=== PATIENT | male | born 1995 ===

== ENCOUNTER 2017-10-11 12:40 | Emergency (ER) | payer OTHER ==
[2017-10-11 12:55] VITALS: BMI 21.1
[2017-10-11 12:57] VITALS: BP 107/70; PULSE 67; RESP 18; TEMP 97.7; O2SAT 100
--- NOTE | 2017-10-11 13:15 | C.PDOC ---
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 Patient reports of significant bleeding after he had a "hard sneeze". Admits to cold symptom ovewr the past week, assocaited with nasal congetsion and runny nose. Currently, no active epistaxis , fever, chills or headache. 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 Constitutional: Negative for: Fever, Chills ENT: Positive for: Other ((+) Nose bleeding. Resolved now.) Neurological: Negative for: Headache Physical Exam - Physical Exam Appears: Non-toxic, No Acute Distress Skin: Warm, Dry, No Rash Head: Atraumatic, Normacephalic Ear(s): Bilateral: Normal Nose: No Epistaxis, Other ((+) Left nostril with blood and scabed. ) Oral Mucosa: Moist Throat: Normal, No Erythema, No Exudate Neck: Normal, Normal ROM, Supple Respiratory: Normal Breath Sounds, No Rales, No Rhonchi, No Stridor, No Wheezing Extremity: Normal ROM, No Swelling Neurological/Psych: Oriented x3, Normal Speech, Normal Motor ED Course And Treatment O2 Sat by Pulse Oximetry: 100 (RA) Pulse Ox Interpretation: Normal Disposition Counseled Patient/Family Regarding: Diagnosis, Need For Followup - Disposition Referrals: Carlos Greenwood MD [Staff Provider] - Disposition: HOME/ ROUTINE Disposition Time: 13:12 Condition: STABLE Additional Instructions: VASELINE NOSTRIL DAILY DO NOT PICK NOSE FOLLOW UP WITH ENT IN 2-3 DAYS FOR RE-EVALUATION NEED RETURN TO ED IF ANY WORSENING OR NEW CHANGES. 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 - Scribe Statement The provider has reviewed the documentation as recorded by the Scribe Julissa Capps All medical record entries made by the Scribe were at my direction and personally dictated by me. I have reviewed the chart and agree that the record accurately reflects my personal performance of the history, physical exam, medical decision making, and the department course for this patient. I have also personally directed, reviewed, and agree with the discharge instructions and disposition.
== END 2017-10-11 13:45 | disposition home or self-care (01) ==
LOC: C.ER 12:40
DX: R04.0 Epistaxis (principal)

== ENCOUNTER 2017-12-19 11:16 | Emergency (ER) | payer OTHER ==
[2017-12-19 11:16] VITALS: BMI 21.1
[2017-12-19 12:03] VITALS: BP 98/64; PULSE 103; RESP 22; TEMP 99; O2SAT 96
--- NOTE | 2017-12-19 14:12 | C.PDOC ---
History Of Present Illness 22yo male presents to ED with complaints of headache, bodyaches, cough, congestion, nausea and vomiting since yesterday. Patient states he did receive the flu vaccination this season. Of note, patient states he does have a positive sick contact, as his mother is sick at home. Time Seen by Provider: 12/19/17 13:37 Chief Complaint (Nursing): Cough, Cold, Congestion History Per: Patient History/Exam Limitations: no limitations Onset/Duration Of Symptoms: Days Current Symptoms Are (Timing): Still Present Location Of Pain: Headache Sick Contacts (Context): Family Member(s) Associated Symptoms: Sore Throat, Cough, Vomiting. denies: Fever, Chills, Myalgias Additional History Per: Patient Past Medical History Reviewed: Historical Data, Nursing Documentation, Vital Signs Vital Signs: Last Vital Signs Temp 99.0 F 12/19/17 12:00 Pulse 103 H 12/19/17 12:00 Resp 22 12/19/17 12:00 BP 98/64 L 12/19/17 12:00 Pulse Ox 96 12/19/17 14:23 - Medical History PMH: No Chronic Diseases Surgical History: No Surg Hx Family History: States: No Known Family Hx - Social History Hx Alcohol Use: No Hx Substance Use: No - Immunization History Hx Tetanus Toxoid Vaccination: No Hx Influenza Vaccination: No Hx Pneumococcal Vaccination: No Review Of Systems Constitutional: Negative for: Fever, Chills Eyes: Negative for: Vision Change, Redness ENT: Positive for: Nose Congestion. Negative for: Ear Pain, Throat Pain Cardiovascular: Negative for: Palpitations Respiratory: Positive for: Cough. Negative for: Sputum Gastrointestinal: Positive for: Nausea, Vomiting. Negative for: Abdominal Pain , Diarrhea Skin: Negative for: Rash Neurological: Positive for: Headache Physical Exam - Physical Exam Appears: Non-toxic, No Acute Distress Skin: Warm, Dry, Other (few petechia under eyes) Head: Atraumatic, Normacephalic Eye(s): bilateral: Normal Inspection, PERRL, EOMI Ear(s): Bilateral: Normal (no erythema) Nose: Normal Oral Mucosa: Moist Throat: Normal, No Erythema, No Exudate Neck: Normal ROM, Supple Chest: Symmetrical Cardiovascular: Rhythm Regular, No Murmur Respiratory: Normal Breath Sounds, No Wheezing Gastrointestinal/Abdominal: Bowel Sounds (active), Soft, No Tenderness, No Distention, No Guarding Back: Normal Inspection, No CVA Tenderness Extremity: Bilateral: Atraumatic, Normal ROM Neurological/Psych: Oriented x3, Normal Speech Gait: Steady ED Course And Treatment O2 Sat by Pulse Oximetry: 96 (RA) Pulse Ox Interpretation: Normal Medical Decision Making Medical Decision Making: Impression: Viral illness, multiple symptoms likely Flu Plan: Patient to be discharged home with prescriptions for Tamiflu, Zofran and Motrin. Recommend supportive treatment and instruct to take Tylenol or Motrin alternating every 4-6 hours for Fever 100.4F or higher. Rest and drink plenty of fluids to prevent dehydration. Patient feels comfortable going home and will be discharged. Patient given follow up instructions. Instructed to return to ER if symptoms worsen or new symptoms arise. Disposition Counseled Patient/Family Regarding: Need For Followup, Rx Given - Disposition Disposition: HOME/ ROUTINE Disposition Time: 14:12 Condition: STABLE Additional Instructions: Prescriptions sent to [facility] You have flu Take Tylenol or Motrin alternating every 4-6 hours for Fever 100.4F or higher. Take medicine as needed for symptoms relief follow up in the clinic for more medical care Prescripciones enviadas a [facility] Usted tiene gripe [place] Tylenol o Motrin alternando cada 4-6 horas para Fie[place] 100.4F o superior. 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 - Scribe Statement The provider has reviewed the documentation as recorded by the Scribe (Maxine Duarte) Provider Scribe Attestation: All medical record entries made by the Scribe were at my direction and personally dictated by me. I have reviewed the chart and agree that the record accurately reflects my personal performance of the history, physical exam, medical decision making, and the department course for this patient. I have also personally directed, reviewed, and agree with the discharge instructions and disposition.
== END 2017-12-19 14:44 | disposition home or self-care (01) ==
LOC: C.ER 11:16
DX: J11.1 Influenza due to unidentified influenza virus with other respiratory manifestations (principal)

== ENCOUNTER 2019-04-14 14:46 | Emergency (ER) | payer SELFPAY ==
[2019-04-14 14:47] VITALS: BMI 21.1
[2019-04-14 15:07] VITALS: BP 130/82; PULSE 112; RESP 17; TEMP 99.3; O2SAT 95
[2019-04-14] MEDS ORDERED: Lidocaine 2% Inj (20ml) INFIL ONE (15:45)
[2019-04-14] MEDS ORDERED: DTap Vaccine 0.5 ml Vial IM ONE (15:46)
--- NOTE | 2019-04-14 15:47 | C.PDOC ---
History Of Present Illness 23 y/o male pt presents to the ER c/o multiple facial lacerations. Pt reports that he was playing baseball when he slid and hit his face on the fence. Pt reports his jaw feels fine and his teeth does not feel loose. Pt also denies LOC, dizziness, numbness, tingling, blurry vision, neck or back pain or any abdominal discomfort. Nothing makes symptoms better or worse. He is unsure of his last tetanus vaccination. No other complaints at this time. Time Seen by Provider: 04/14/19 15:35 Chief Complaint (Nursing): Abnormal Skin Integrity History Per: Patient History/Exam Limitations: no limitations Onset/Duration Of Symptoms: Hrs Current Symptoms Are (Timing): Still Present Past Medical History Reviewed: Historical Data, Nursing Documentation, Vital Signs Vital Signs: Last Vital Signs Temp 99.3 F 04/14/19 15:04 Pulse 112 H 04/14/19 15:04 Resp 17 04/14/19 15:04 BP 130/82 04/14/19 15:04 Pulse Ox 95 04/14/19 15:04 Primary Care Provider: FAMILY PROVIDER,NO Family History: States: No Known Family Hx - Social History Hx Alcohol Use: No Hx Substance Use: No - Immunization History Hx Tetanus Toxoid Vaccination: No Hx Influenza Vaccination: No Hx Pneumococcal Vaccination: No Review Of Systems Except As Marked, All Systems Reviewed And Found Negative. Constitutional: Positive for: Other (3 lacerations to the face; no loose teeth, jaw feels normal ) Eyes: Negative for: Vision Change Gastrointestinal: Negative for: Nausea, Vomiting Neurological: Negative for: Dizziness, Other (LOC) Physical Exam - Physical Exam Appears: Well, Non-toxic, No Acute Distress Skin: Normal Color, Warm, Dry Head: Normacephalic, No Tenderness, No Swelling, Abrasion (on bridge of nose; no bleeding or deformity ), Laceration (lac 1: just beneath nose, small puncture wound 0.5 cm partial thickness, no active bleeding; lac 2: 1.5 cm jagged, full thickness laceration above right lateral lip; no active bleeding lac 3: located to the middle of the upper lip, 0.5 cm partial thickness, does not cross moi border, mild active bleeding ) Eye(s): bilateral: Normal Inspection, PERRL, EOMI Nose: Normal, No Epistaxis, No Deformity, No Septal Hematoma Oral Mucosa: Moist Tongue: Normal Appearing Lips: Swelling (upper lips ), Other (ecchymosis of inner lips ) Teeth: Normal Dentition Gingiva: Normal Appearing Throat: Normal Neck: Normal, Normal ROM, No Midline Cervical Tenderness Chest: Symmetrical Back: Normal Inspection, No Decreased ROM Extremity: Normal ROM, No Tenderness Neurological/Psych: Oriented x3, Normal Speech, Normal Cognition, Normal Cranial Nerves, Normal Motor, Normal Sensation ED Course And Treatment O2 Sat by Pulse Oximetry: 95 (RA) Pulse Ox Interpretation: Normal Laceration - Laceration Repair lac 1: beneath nose Wound Length (In cm): 0.5 Description Of Wound: Linear Wound Cleansed With: Betadine, Sterile Saline Anesthesia: Lidocaine 2% Wound Examination: Irrigated With Saline, No FB With Wound Exploration Wound Closure: Suture (2) Suture Technique And Material Used: Interrupted, Nylon (6-0) Wound Complexity: Simple Lac 3: middle of upper lip Wound Length (In cm): 0.5cm Description Of Wound: Linear Wound Cleansed With: Betadine, Sterile Saline Anesthesia: Lidocaine 2% Wound Examination: Irrigated With Saline, No FB With Wound Exploration Wound Closure: Suture (2) Suture Technique And Material Used: Interrupted, Vicryl (5-0) Wound Complexity: Simple Lac 2: lateral aspect of area above lip Wound Length (In cm): 1.5cm Description Of Wound: Linear Wound Cleansed With: Betadine, Sterile Saline Anesthesia: Lidocaine 2% Wound Examination: Irrigated With Saline, No FB With Wound Exploration Wound Closure: Suture (4) Suture Technique And Material Used: Interrupted, Nylon (6-O) Wound Complexity: Simple Medical Decision Making Medical Decision Making: Plans: -- laceration repair --tetanus vaccination 23yo male with facial lacerations. Lacerations closed. Tetanus updated. Instructed on wound care. Well appearing. Teeth intact. PO keflex rx written for wound infection prophylaxis. Instructed to have wound check with PMD in 2 days. Will return with any pain, swelling, redness, drainage or fevers. Instructed to have sutures removed by PMD or ER. Disposition Counseled Patient/Family Regarding: Diagnosis, Need For Followup, Rx Given - Disposition Referrals: FAMILY PROVIDER,NO [Family Provider] - Disposition: HOME/ ROUTINE Disposition Time: 16:38 Condition: GOOD Additional Instructions: Follow-up with you PMD or ER for a wound check in 2 days. Sutures above your lip need to be removed in 1 week. Sutures in your lip will dissolve. Do not get area wet or remove dressing for 1 day. THen you can clean area daily with warm soapy water and keep covered. Return if symptoms worsen or persist. 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 - Scribe Statement The provider has reviewed the documentation as recorded by the Hao [place] Do All medical record entries made by the Johanibcolleen were at my direction and personally dictated by me. I have reviewed the chart and agree that the record accurately reflects my personal performance of the history, physical exam, medical decision making, and the department course for this patient. I have also personally directed, reviewed, and agree with the discharge instructions and disposition.
[2019-04-14] MEDS ORDERED: Bacitracin 500 Units/gm Oint Foilpak UD ONE (15:52)
[2019-04-14] MEDS ORDERED: Lidocaine 2% MPF (5 ml) Inj ONE (16:08)
[2019-04-14] MEDS ORDERED: Tdap Vaccine 0.5 ml Vial (10-64 yrs) IM ONE ×2 (16:09→16:29)
[2019-04-14] MEDS ORDERED: Tetanus/Diphtheria Toxoids 0.5 ml Syringe IM ONE (16:09)
== END 2019-04-14 16:44 | disposition home or self-care (01) ==
LOC: C.ER 14:46
DX: S01.21XA Laceration without foreign body of nose, initial encounter (principal); S01.511A Laceration without foreign body of lip, initial encounter; W22.8XXA Striking against or struck by other objects, initial encounter; Y93.64 Activity, baseball

== ENCOUNTER 2019-04-20 15:04 | Emergency (ER) | payer OTHER | END 2019-04-20 16:00 | disposition home or self-care (01) | LOC: C.ER 15:04 ==